=== PATIENT | female | born 1980 | race Caucasian/White ===

== ENCOUNTER 2017-01-19 19:14 | Emergency (ER) | payer BC, OTHER ==
[~2017-01-19] VITALS: Ht 162.6 cm; Wt 63.9 kg
[~2017-01-19 19:14] MED LIST: ACET-1311 PO; IBUP-1050 PO; LABE1TAB28 PO; PRENTAB26 PO
[2017-01-19 19:27] VITALS: TEMP 36.6; Ht 162.6 cm; Wt 63.9 kg
[2017-01-19] MEDS ORDERED: XYLOCAINE 1%/SOD BICARB 20 ML VIAL INFIL ONE (19:45)
[2017-01-19] MEDS ORDERED: BUPIVACAINE 0.5 % 5 MG/1 ML MPF 30ML VIAL INFIL ONE (19:45)
[2017-01-19] MEDS ORDERED: LISI-461 PO (19:58)
[2017-01-19] MEDS ORDERED: BCPILLS PO (19:59)
--- NOTE | 2017-01-19 20:14 | DIAGNOSTIC IMAGING REPORT ---
L FINGER(S) MIN 2 VIEWS ROUTINE HISTORY: 36 years-old Female LEFT 2ND FINGER, LACERATION FROM HEDGETRIMMER acute left index finger pain status post laceration. COMPARISON: None available. TECHNIQUE: 3 views of the left second finger FINDINGS: Mild interphalangeal joint space narrowing throughout. There is mild soft tissue swelling of the second digit centered near the DIP joint without acute fracture, dislocation or opaque foreign body. IMPRESSION: Soft tissue swelling of the second digit without acute fracture, dislocation or opaque foreign body. The above report was generated using voice recognition software. It may contain grammatical, syntax or spelling errors. Electronically signed by: Anthony Souza M.D. 01/19/2017 8:13 PM Dictated Date/Time: 01/19/2017 8:11 PM
--- NOTE | 2017-01-19 21:10 | EMERGENCY ROOM VISIT NOTE ---
ED Visit Note First contact with patient: 19:34 CHIEF COMPLAINT: Right second finger laceration from a hand leather trimmer HISTORY OF PRESENT ILLNESS: Patient is a [id number] 36-year-old white female who presents to emergency department for evaluation of a laceration to the left second finger. She accidentally struck it on the blade of an electric hand leather trimmer. She applied pressure with gauze immediately. Bleeding has been controlled. She notes a throbbing, 6/10 pain. Denies weakness or numbness of the finger. REVIEW OF SYSTEMS: Review of systems as per HPI. All other systems reviewed were negative. At least 6 systems reviewed. PMH: Electronic medical records are reviewed and summarized as above/below. See Problem List. Last tetanus was in 2008. SOCIAL HISTORY: Patient lives at home with her family. Nonsmoker. PHYSICAL EXAM: Vital Signs: Reviewed Nurse's notes. There is a jagged, irregular, 2 cm long laceration on the palmar aspect of the left second finger, over the DIP crease. The edges gape apart with traction. There is no foreign material in the wound and it looks clean. There is no bleeding. No deep structures such as tendons or nerves are seen in the base of the wound. She is able to flex finger at the MCP, DIP and the PIP joints one isolated. EMERGENCY DEPARTMENT COURSE: Using sterile technique, the finger was cleansed with saline and Betadine. Digital block was performed using a 2:1 solution of 1 % plain buffered lidocaine and 0.5% Sensorcaine. Wound was irrigated copiously using normal saline solution. Finger tourniquet was applied, and hemostasis allowed for direct visualization. Laceration did not extend through to the flexor tendon surface. The wound was irrigated copiously with normal saline solution, then the laceration was repaired with 8, 5-0 nylon sutures. Bacitracin, light dressing and mental fingertip splint were applied. Patient's tetanus was updated. Wound care measures were discussed. There is no evidence for nerve, vascular or tendinous injury. Medication reconciliation: I attest that I have personally reviewed the patient' s current medication list. Blood pressure screening: Patient was found to have a slightly elevated blood pressure due to circumstances. I do not believe that the patient requires hypertension monitoring. L FINGER(S) MIN 2 VIEWS ROUTINE HISTORY: 36 years-old Female LEFT 2ND FINGER, LACERATION FROM HEDGETRIMMER acute left index finger pain status post laceration. COMPARISON: None available. TECHNIQUE: 3 views of the left second finger FINDINGS: Mild interphalangeal joint space narrowing throughout. There is mild soft tissue swelling of the second digit centered near the DIP joint without acute fracture, dislocation or opaque foreign body. IMPRESSION: Soft tissue swelling of the second digit without acute fracture, dislocation or opaque foreign body. Problem List Medical Problems: (1) Hypertension Nos Status: Chronic Current/Historical Medications Scheduled Control Pills ( Control Pills), 1 TAB PO DAILY Lisinopril (Zestril), Unknown Dose PO DAILY Allergies Coded Allergies: No Known Allergies (Verified Allergy, Unknown, 05/23/06) Vital Signs Date Time Temp Pulse Resp B/P (MAP) Pulse Ox O2 Delivery O2 Flow Rate FiO2 01/19/17 21:25 83 16 137/88 98 01/19/17 19:27 36.6 90 20 153/100 100 Room Air Medications Administered Medications (Trade) Dose Ordered Sig/Jesi Route Start Time Stop Time Status Last Admin Dose Admin Diphtheria/ Pertussis/Tetanus Vacc (Adacel Inj) 0.5 ml ONCE ONCE IM. 01/19/17 21:15 01/19/17 21:16 DC 01/19/17 21:25 0.5 ML Departure Information Impression Primary Impression: Laceration of finger Referrals No Doctor, Assigned (PCP) Patient Instructions My [facility] Additional Instructions Keep wound clean and dry. Clean gently with mild soap and water. Do not allow any crusting or dried blood to accumulate on sutures. If this occurs, use a 1: 1 solution of hydrogen peroxide/water on a Q-tip to clean the wound. Use an antibiotic ointment for 3-4 days, then let wound dry. Suture removal in 10-12 days. Return sooner for any signs of infection (increasing redness, swelling, drainage). Finger splint as needed for protection/support only. Ice and elevate for swelling and pain. Ibuprofen 600 mg and Tylenol 1000 mg every 6 hrs for pain. Problem Qualifiers Primary Impression: Laceration of finger Encounter type: initial encounter Finger: index finger Damage to nail status: without damage Foreign body presence: without foreign body Laterality: left Qualified Codes: S61.211A - Laceration without foreign body of left index finger without damage to nail, initial encounter
[2017-01-19] MEDS ORDERED: DIPHTHERIA/TETANUS/PERTUSSIS 0.5 ML SYR/VIAL IM. ONE (21:15)
[2017-01-19 21:25] VITALS: BP 137/88; PULSE 83; O2SAT 98
== END 2017-01-19 21:26 | disposition home or self-care (01) ==
LOC: C.EDB 19:14 → C.EDD 21:26
DX: S61.211A Laceration without foreign body of left index finger without damage to nail, initial encounter (principal); W29.3XXA Contact with powered garden and outdoor hand tools and machinery, initial encounter; Y93.H2 Activity, gardening and landscaping; I10 Essential (primary) hypertension; Z79.3 Long term (current) use of hormonal contraceptives; Z23 Encounter for immunization

== ENCOUNTER 2017-08-25 00:24 | Emergency (ER) | payer BC ==
[~2017-08-25] VITALS: Ht 160 cm; Wt 70.0 kg
[~2017-08-25 00:24] MED LIST changes: -ACET-1311 PO; +BCPILLS PO; -IBUP-1050 PO; -LABE1TAB28 PO; +LISI-461 PO; -PRENTAB26 PO
[2017-08-25 00:36] VITALS: TEMP 36.6; Ht 160 cm; Wt 70.0 kg
[2017-08-25] MEDS ORDERED: KETOROLAC TROMETHAMINE 30 MG/ML VIAL IV STA (00:51)
[2017-08-25] MEDS ORDERED: SODIUM CHLORIDE 0.9% 1000ML 1,000 ML IV STA (00:51)
[2017-08-25 01:06] LABS: BASO % 0.3 %; BASO ABS # 0.03 K/uL (0-0.2); EOS % 3.8 %; EOS ABS # 0.38 K/uL (0-0.5); HEMATOCRIT 41.3 % (37-47); IG# 0.03 K/uL (0.00-0.02); LYMPH ABS # 2.67 K/uL (1.2-3.4); MEAN CELL VOLUME 92.8 fL (80-100); MEAN CORPUSCULAR HEMOGLOBIN 31.5 pg (25-34); MEAN CORPUSCULAR HGB CONC 33.9 g/dl (32-36); MEAN PLATELET VOLUME 9.9 fL (7.4-10.4); MONO % 6.7 %; MONO ABS # 0.66 K/uL (0.11-0.59); NEUT % 61.9 %; NEUT ABS # 6.12 K/uL (1.4-6.5); PLATELET COUNT 255 K/uL (130-400); RED CELL DISTRIBUTION WIDTH SD 44.2 fL (36.4-46.3); WHITE BLOOD COUNT 9.89 K/uL (4.8-10.8)
[2017-08-25] MEDS ORDERED: LISI-788 PO (01:15)
[2017-08-25] MEDS ORDERED: AMLO2.5T PO (01:16)
[2017-08-25 01:22] LABS: ALBUMIN 3.7 gm/dl (3.4-5.0); CALCIUM 8.9 mg/dl (8.5-10.1); CREATININE 1.02 mg/dl (0.60-1.20); POTASSIUM 3.3 mmol/L (3.5-5.1); TOTAL PROTEIN 8.1 gm/dl (6.4-8.2)
[2017-08-25] MEDS ORDERED: CEFDINIR 300 MG CAP PO STA (02:01)
[2017-08-25] MEDS ORDERED: CEFD1CAP14 PO (02:02)
--- NOTE | 2017-08-25 02:02 | EMERGENCY ROOM VISIT NOTE ---
History First contact with patient: 00:45 Chief Complaint: URINARY SYMPTOMS Stated Complaint: UTI - PAIN IN KIDNEY AREA Nursing Triage Summary: Pt reports UTI symptoms that started late Thursday night. Pt attempted to contact her PCP on Thursday. Pt now with left flank pain. Denies hx kidney stone History of Present Illness The patient is a 37 year old female who presents to the Emergency Room for evaluation of left flank pain. Notes 2 days of UTI symptoms with burning and discomfort. Increasing left flank pain over last few hours. Associated fatigue and generalized aches. Pains is aching in nature. It is not sudden onset. Better with rest. Nothing make worse. AZO helps some with discomfort. No fevers, syncope, vomiting, diarrhea, abdominal pain, sob, cp nor other symptoms. Admits periodic UTIs. No history of kidney stones. Denies trauma/ injury. No antibiotics recently. Currently having menstrual period. Of note, admits she didn't take her BP meds. Review of Systems See HPI for pertinent positives & negatives. A total of 10 systems reviewed and were otherwise negative. Past Medical/Surgical History Medical Problems: (1) Hypertension Nos Social History Smoking Status: Former Smoker Current/Historical Medications Scheduled Amlodipine (Norvasc), 2.5 MG PO DAILY Control Pills ( Control Pills), 1 TAB PO DAILY Cefdinir (Omnicef), 300 MG PO Q12H Lisinopril/Hctz (Zestoretic 20MG/25MG), 1 TAB PO BID Physical Exam Vital Signs Date Time Temp Pulse Resp B/P (MAP) Pulse Ox O2 Delivery O2 Flow Rate FiO2 08/25/17 01:32 76 20 145/94 98 08/25/17 00:36 36.6 95 20 178/113 100 Room Air Physical Exam GENERAL: Patient is well appearing and in mild distress. EYES: No scleral icterus, unremarkable pupils. ENT: Mucous membranes moist, no nasal congestion. NECK: No masses appreciated, no meningismus, trachea is midline. RESPIRATORY: No dyspnea. Clear to auscultation and equal bilaterally. No wheeze , no rhonchi. CARDIOVASCULAR: Regular rate and rhythm. No murmurs, rubs, gallops appreciated. GASTROINTESTINAL: Abdomen soft, nontender, no peritonitis. Bowel sounds positive. No masses appreciated. BACK: No midline tenderness, vague left CVA tenderness EXTREMITIES: Normal motion all extremities, no cyanosis, no edema. NEUROLOGIC: Alert and oriented, no acute motor or sensory deficits, no focal weakness, cranial nerves grossly intact. SKIN: No rash, no jaundice, no diaphoresis. Medical Decision & Procedures Laboratory Results 08/25/17 00:42 Red Blood Count 4.45, Mean Corpuscular Volume 92.8, Mean Corpuscular Hemoglobin 31.5, Mean Corpuscular Hemoglobin Concent 33.9, Mean Platelet Volume 9.9, Neutrophils (%) (Auto) 61.9, Lymphocytes (%) (Auto) 27.0, Monocytes (%) (Auto) 6.7, Eosinophils (%) (Auto) 3.8, Basophils (%) (Auto) 0.3, Neutrophils # (Auto) 6.12, Lymphocytes # (Auto) 2.67, Monocytes # (Auto) 0.66, Eosinophils # (Auto) 0.38, Basophils # (Auto) 0.03 08/25/17 00:42 Test 08/25/17 00:42 White Blood Count 9.89 K/uL (4.8-10.8) Red Blood Count 4.45 M/uL (4.2-5.4) Hemoglobin 14.0 g/dL (12.0-16.0) Hematocrit 41.3 % (37-47) Mean Corpuscular Volume 92.8 fL (80-100) Mean Corpuscular Hemoglobin 31.5 pg (25-34) Mean Corpuscular Hemoglobin Concent 33.9 g/dl (32-36) Platelet Count 255 K/uL (130-400) Mean Platelet Volume 9.9 fL (7.4-10.4) Neutrophils (%) (Auto) 61.9 % Lymphocytes (%) (Auto) 27.0 % Monocytes (%) (Auto) 6.7 % Eosinophils (%) (Auto) 3.8 % Basophils (%) (Auto) 0.3 % Neutrophils # (Auto) 6.12 K/uL (1.4-6.5) Lymphocytes # (Auto) 2.67 K/uL (1.2-3.4) Monocytes # (Auto) 0.66 K/uL (0.11-0.59) Eosinophils # (Auto) 0.38 K/uL (0-0.5) Basophils # (Auto) 0.03 K/uL (0-0.2) RDW Standard Deviation 44.2 fL (36.4-46.3) RDW Coefficient of Variation 13.0 % (11.5-14.5) Immature Granulocyte % (Auto) 0.3 % Immature Granulocyte # (Auto) 0.03 K/uL (0.00-0.02) Urine Color DK YELLOW Urine Appearance CLOUDY (CLEAR) Urine pH 6.0 (4.5-7.5) Urine Specific [place] 1.022 (1.000-1.030) Urine Protein 3+ (NEG) Urine Glucose (UA) NEG (NEG) Urine Ketones NEG (NEG) Urine Occult Blood 3+ (NEG) Urine Nitrite NEG (NEG) Urine Bilirubin NEG (NEG) Urine Urobilinogen NEG (NEG) Urine Leukocyte Esterase MODERATE (NEG) Urine WBC (Auto) >30 /hpf (0-5) Urine RBC (Auto) >30 /hpf (0-4) Urine Hyaline Casts (Auto) 1-5 /lpf (0-5) Urine Epithelial Cells (Auto) 10-20 /lpf (0-5) Urine Bacteria (Auto) 1+ (NEG) Urine Yeast (Auto) (NONE PRSENT) Urine Test NEG (NEG) Anion Gap 12.0 mmol/L (3-11) Est Creatinine Clear Calc Drug Dose 70.2 ml/min Estimated GFR () 80.8 Estimated GFR (Non- 69.7 BUN/Creatinine Ratio 6.8 (10-20) Calcium Level 8.9 mg/dl (8.5-10.1) Total Bilirubin 0.5 mg/dl (0.2-1) Direct Bilirubin 0.1 mg/dl (0-0.2) Aspartate Amino Transf (AST/SGOT) 21 U/L (15-37) Alanine Aminotransferase (ALT/SGPT) 29 U/L (12-78) Alkaline Phosphatase 91 U/L (45-117) Total Protein 8.1 gm/dl (6.4-8.2) Albumin 3.7 gm/dl (3.4-5.0) Lipase 193 U/L (73-393) Medications Administered Medications (Trade) Dose Ordered Sig/Jesi Route Start Time Stop Time Status Last Admin Dose Admin Ketorolac Tromethamine (Toradol Inj) 30 mg NOW STAT IV 08/25/17 00:51 08/25/17 00:52 DC 08/25/17 01:05 30 MG Sodium Chloride 1,000 ml @ 999 mls/hr Q1H1M STAT IV 08/25/17 00:51 08/25/17 01:51 DC 08/25/17 01:05 999 MLS/HR Medical Decision Differential: UTI, Urethritis, Pyelonephritis, PID, Cystitis, Hemorrhagic Cystitis, amongst other pathologies entertained. 37 yr old female with UTI symptoms last few days now developing left flank discomfort. Symptoms resolved with fluids and Toradol, though with description and findings I suspect this is not kidney notes. Symptoms consistent with pyelonephritis but with normal WBC, good Cr and no fevers seems reasonable proceeding with antibiotics as outpatient. Initially ordered US but given feeling so much better she very much wishes to get home. We discussed at length symptoms requiring RTED and that fact that if this is stone she may get much sicker. Aware she can return at any time for recheck if she is concerned symptoms worsening or other concerns. Omnicef for broad coverage and kidney coverage. Head Trauma GCS Score: 15 Medication Reconcilliation Current Medication List: was personally reviewed by me Blood Pressure Screening Patient's blood pressure: Elevated blood pressure Blood pressure disposition: Elevated BP felt to be situational, Did not require urgent referral Impression Primary Impression: Pyelonephritis Departure Information Dispostion Home / Self-Care Condition GOOD Prescriptions Cefdinir (Omnicef) 300 Mg Cap 300 MG PO Q12H for 7 Days, #14 CAP Prov: Jonny Sidhu M.D. 08/25/17 Referrals Kyle Sebastian M.D. ([facility]) (PCP) Patient Instructions My [facility], Pyelonephritis Dc
[2017-08-25 02:13] VITALS: BP 147/76; PULSE 76; O2SAT 98
== END 2017-08-25 02:14 | disposition home or self-care (01) ==
LOC: C.EDB 00:25 → C.EDA 02:14
DX: N12 Tubulo-interstitial nephritis, not specified as acute or chronic (principal); I10 Essential (primary) hypertension; Z79.3 Long term (current) use of hormonal contraceptives; Z79.899 Other long term (current) drug therapy